=== PATIENT | female | born 1990 | race Caucasian/White ===

== ENCOUNTER → 2023-09-20 | Emergency (ER) | payer OTHER ==
[~2023-09-20] MED LIST: HYDROCODONE/APAP 10/325 TAB ONE; LIDOCAINE HCL JELLY 2% 6 ML SYRINGE TOP ONE; SMZ./TMP. 800/160 MG TABLET ONE
--- NOTE | 2023-09-20 14:53 | ER ---
Nurse's Notes [facility] Name: Rylee Monroe Age: 33 yrs Sex: Female : 1990 Arrival Date: 09/20/2023 Time: 12:40 Bed 13 Private MD: Diagnosis: Abscess of Bartholin's gland Presentation: 09/20 13:20 Chief complaint: Patient states: "I have a Bartholin cyst that I noticed 4-5 days ago. cm10 I called my commercial drafter in [place] and she called in a prescription for Bactrim and I still have not received it. I was supposed to get it delivered.". Coronavirus screen: Vaccine status: Patient reports receiving the 2nd dose of the covid vaccine. Client denies travel out of the [place] in the last 14 days. Ebola Screen: Patient denies travel to an Ebola-affected area in the 21 days before illness onset. No symptoms or risks identified at this time. Initial Sepsis Screen: Does the patient meet any 2 criteria? HR > 90 bpm. Does the patient have a suspected source of infection? No. Patient's initial sepsis screen is negative. Risk Assessment: Do you want to hurt yourself or someone else? Patient reports no desire to harm self or others. Onset of symptoms was September 20, 2023. 13:20 Method Of Arrival: Wheelchair cm10 13:20 Acuity: IGGY 3 cm10 Triage Assessment: 13:23 General: Appears uncomfortable, Behavior is crying. Neuro: No deficits noted. Level of cm10 Consciousness is awake, alert, obeys commands, Oriented to person, place, time, situation. Respiratory: No deficits noted. Airway is patent Respiratory effort is even, unlabored, Respiratory pattern is regular, symmetrical. Historical: - Allergies: 13:21 No Known Allergies; cm10 - PMHx: 13:21 Hypertensive disorder; Tachycardia; cm10 - Immunization history:: Adult Immunizations up to date. - Social history:: Smoking status: Patient reports the use of cigarette tobacco products, smokes one-half pack cigarettes per day. Screenin:00 [facility] ED Fall Risk Assessment (Adult) History of falling in the last 3 months, ph including since admission No falls in past 3 months (0 pts) Score/Fall Risk Level 0 - 2 = Low Risk. Abuse screen: Denies threats or abuse. Denies injuries from another. Nutritional screening: No deficits noted. Tuberculosis screening: No symptoms or risk factors identified. Assessment: 14:30 General: Appears in no apparent distress. uncomfortable, Behavior is cooperative, ph appropriate for age, anxious. Pain: Complains of pain in right labia minora. Neuro: Level of Consciousness is awake, alert, obeys commands, Oriented to person, place, time, situation. Cardiovascular: Capillary refill < 3 seconds in bilateral fingers Patient's skin is warm and dry. Respiratory: Airway is patent Respiratory effort is even, unlabored. : Reports pain Bartholin cyst noted. 15:15 Reassessment: Before provider was able to preform I\\T\\D cyst ruptured spontaneously, ph large amount of purulent malodorous drainage noted. Vital Signs: 13:20 BP 109 / 80; Pulse 117; Resp 18; Temp 98.1; Pulse Ox 100% ; Weight 78.93 kg; Height 5 cm10 ft. 5 in. ; Pain 10/10; 15:00 BP 111 / 87; Pulse 98; Resp 18; Temp 97.9; Pulse Ox 99% on R/A; ph 13:20 Body Mass Index 28.95 (78.93 kg, 165.1 cm) cm10 13:20 Pain Scale: Adult cm10 ED Course: 12:42 Patient arrived in ED. mg5 13:06 [facility] jh7 13:06 Ivan Fraga MD is Attending Physician. jh7 13:21 Triage completed. cm10 13:23 Arm band placed on. cm10 13:46 Taryn Root, RN is Primary Nurse. ph 15:30 No provider procedures requiring assistance completed. Patient did not have IV access ph during this emergency room visit. Administered Medications: 14:58 Drug: [place] PO 10 mg-325 mg 1 tabs PO once Route: PO; ph 15:08 Drug: Trimethoprim-Sulfamethoxazole PO (160 mg-800 mg (DS) 1 tablet PO once Route: PO; ph 15:35 Not Given (Other Intervention Used): LET - (lidocainesolution (4%) 1 application, ph epinephrine intranasal solution (0.1 %) 1 application, tetracainesolution (0.5 %) 1 application, methylcellulose ophthalmic powder 1 application) 3 ml Topical once Medication: 14:00 VIS not applicable for this client. ph Outcome: 14:53 Discharge ordered by MD. jamison 15:36 Discharged to home ambulatory, ph 15:36 Condition: good 15:36 Discharge instructions given to patient, Instructed on discharge instructions, follow up and referral plans. medication usage, Demonstrated understanding of instructions, follow-up care, medications, Prescriptions given X 2, 15:37 Patient left the ED. ph Signatures: Taryn Root RN RN Rosalba Melendez FNP FNP jh7 Shannon Stephens RN RN cm10 Marisela Bailon 5
--- NOTE | 2023-09-20 14:54 | EDPHYS ---
Physician Documentation [facility] Name: Rylee Monroe Age: 33 yrs Sex: Female : 1990 Arrival Date: 09/20/2023 Time: 12:40 Bed 13 Private MD: ED Physician Ivan Fraga HPI: 09/20 13:20 This 33 yrs old Female presents to ER via Wheelchair with complaints of bartholin's jh7 cyst. 13:20 Onset: The symptoms/episode began/occurred 5 day(s) ago. Associated signs and symptoms: jh7 Pertinent negatives: fever. Patient reports right sided Bartholin cyst for the past 5 days. Reports that she has not been able to find an CONDITIONING COACH down here that will accept her insurance yet. She reports that she is currently waiting on a prescription for Bactrim but that it has not been sent yet. Patient complains of 10 out of 10 pain.. Historical: - Allergies: 13:21 No Known Allergies; cm10 - PMHx: 13:21 Hypertensive disorder; Tachycardia; cm10 - Immunization history:: Adult Immunizations up to date. - Social history:: Smoking status: Patient reports the use of cigarette tobacco products, smokes one-half pack cigarettes per day. ROS: 13:20 Constitutional: Negative for fever, chills, and weight loss, Eyes: Negative for injury, jh7 pain, redness, and discharge, Neck: Negative for injury, pain, and swelling, Cardiovascular: Negative for chest pain, palpitations, and edema, Respiratory: Negative for shortness of breath, cough, wheezing, and pleuritic chest pain, Abdomen/GI: Negative for abdominal pain, nausea, vomiting, diarrhea, and constipation, Back: Negative for injury and pain, MS/Extremity: Negative for injury and deformity, Skin: Negative for injury, rash, and discoloration, Neuro: Negative for headache, weakness, numbness, tingling, and seizure, 13:20 : Positive for vaginal pain, 13:20 All other systems are negative, Exam: 13:20 Constitutional: This is a well developed, well nourished patient who is awake, alert, jh7 and in no acute distress. Head/Face: Normocephalic, atraumatic. Eyes: Pupils equal round and reactive to light, extra-ocular motions intact. Lids and lashes normal. Conjunctiva and sclera are non-icteric and not injected. Cornea within normal limits. Periorbital areas with no swelling, redness, or edema. Neck: Trachea midline, no thyromegaly or masses palpated, and no cervical lymphadenopathy. Supple, full range of motion without nuchal rigidity, or vertebral point tenderness. No Meningismus. Cardiovascular: Regular rate and rhythm with a normal S1 and S2. No gallops, murmurs, or rubs. Normal PMI, no JVD. No pulse deficits. Respiratory: Lungs have equal breath sounds bilaterally, clear to auscultation and percussion. No rales, rhonchi or wheezes noted. No increased work of breathing, no retractions or nasal flaring. Abdomen/GI: Soft, non-tender, with normal bowel sounds. No distension or tympany. No guarding or rebound. No evidence of tenderness throughout. Back: No spinal tenderness. No costovertebral tenderness. Full range of motion. Skin: Warm, dry with normal turgor. Normal color with no rashes, no lesions, and no evidence of cellulitis. MS/ Extremity: Pulses equal, no cyanosis. Neurovascular intact. Full, normal range of motion. Neuro: Awake and alert, GCS 15, oriented to person, place, time, and situation. Motor strength 5/5 in all extremities. Sensory grossly intact. Normal gait. 13:20 : Right fluctuant Bartholin cyst with no surrounding cellulitis., Vital Signs: 13:20 BP 109 / 80; Pulse 117; Resp 18; Temp 98.1; Pulse Ox 100% ; Weight 78.93 kg; Height 5 cm10 ft. 5 in. ; Pain 10/10; 15:00 BP 111 / 87; Pulse 98; Resp 18; Temp 97.9; Pulse Ox 99% on R/A; ph 13:20 Body Mass Index 28.95 (78.93 kg, 165.1 cm) cm10 13:20 Pain Scale: Adult cm10 MDM: 13:07 Patient medically screened. [facility] 14:40 ED course: Patient refused Word catheter and stated that she would rather suggest luan jh7 the cyst with a needle and prescribe her antibiotics. Patient called me in the room to notify the staff that her abscess ruptured on its own. Expressed large amount of purulent and bloody drainage. Clean the area with chlorhexidine afterwards. Agreed to prescribe the patient Bactrim and to have her follow-up with an CONDITIONING COACH. She reported symptom relief after expression of cyst was completed.. 14:57 Differential diagnosis: Bartholin cyst, Bartholin cyst abscess. Data reviewed: vital [facility] signs, nurses notes. I considered the following discharge prescriptions or medication management in the emergency department Medications were administered in the Emergency Department. See MAR. Care significantly affected by the following chronic conditions: Hypertension. Counseling: I had a detailed discussion with the patient and/or guardian regarding the historical points, exam findings, and any diagnostic results supporting the discharge/admit diagnosis, the need for outpatient follow up, an OB/Gyne specialist, to return to the emergency department if symptoms worsen or persist or if there are any questions or concerns that arise at home. Response to treatment: the patient's symptoms have markedly improved after treatment. Administered Medications: 14:58 Drug: [place] PO 10 mg-325 mg 1 tabs PO once Route: PO; ph 15:08 Drug: Trimethoprim-Sulfamethoxazole PO (160 mg-800 mg (DS) 1 tablet PO once Route: PO; ph 15:35 Not Given (Other Intervention Used): LET - (lidocainesolution (4%) 1 application, ph epinephrine intranasal solution (0.1 %) 1 application, tetracainesolution (0.5 %) 1 application, methylcellulose ophthalmic powder 1 application) 3 ml Topical once Disposition Summary: 09/20/23 14:53 Discharge Ordered Notes: Location: Home [facility] Problem: new [facility] Symptoms: have improved [facility] Condition: Stable [facility] Diagnosis - Abscess of Bartholin's gland [facility] Followup: [facility] - With: Private Physician - When: 2 - 3 days - Reason: Recheck today's complaints Discharge Instructions: - Discharge Summary Sheet [facility] - Bartholin's Cyst [facility] - Bartholin's Cyst Incision and Drainage [facility] Forms: - Medication Reconciliation Form [facility] - Thank You Letter [facility] - Antibiotic Education [facility] - Prescription Opioid Use [facility] - Patient Portal Instructions [facility] - Leadership Thank You Letter [facility] Prescriptions: - Tramadol 50 mg Oral Tablet - take 1 tablet ORAL route every 8 hours as needed; 12 tablet; Refills: 0, [facility] Product Selection Permitted - Bactrim DS 800-160 mg Oral Tablet - take 1 tablet ORAL route every 12 hours for 10 days; 20 tablet; Refills: 0, jh7 Product Selection Permitted Signatures: Taryn Root, RN RN Rosalba Melendez, [employer] MAINTENANCE CONSULTANT [employer]INTE[employer]SULTANT jh7 Shannon Stephens, SANDHYA RN cm10
[2023-09-20 15:54] VITALS: BP 109/80; TEMP 98.1; O2SAT 100
== END ==
LOC: ER 12:40
DX: N75.1 Abscess of Bartholin's gland (principal); F17.210 Nicotine dependence, cigarettes, uncomplicated
CPT/HCPCS: 99283